=== PATIENT | male | born 1990 | race Caucasian/White ===

== ENCOUNTER 2018-03-16 22:34 | Emergency (ER) | payer SELFPAY ==
[2018-03-16] MEDS ORDERED: predniSONE TAB* 20 MG PO ONE (22:58)
[2018-03-16] MEDS ORDERED: EPINEPHrine AMP 1 MG/ML IM ONE (22:58)
[2018-03-16] MEDS ORDERED: diPHENhydraMINE PO* 25 MG PO ONE (22:58)
[2018-03-16] MEDS ORDERED: Famotidine TAB* 20 MG PO ONE (22:58)
--- NOTE | 2018-03-17 00:18 | ED ---
Adan Gruber Jennifer, scribed for Ulices Smith MD on 03/16/18 at 2256 . Allergic Reaction/Systemic - HPI Summary HPI Summary: The patient is a 27 year old male who complains of allergic reaction after drinking a vegetable smoothie about two hours ago. The patient states the smoothie only had carrot juice and spinach. He reports he immediately vomited, felt something in the middle of his chest, got a nosebleed, got hives on the back of his head and armpits, and got redness to his face. He adds that he can swallow but it feels uncomfortable. - History of Current Complaint Chief Complaint: EDAllergicReaction Time Seen by Provider: 03/16/18 22:47 Hx Obtained From: Patient Onset/Duration: Sudden Onset, Started hours ago - two hours, Still Present Timing: Constant Severity Initially: Mild Severity Currently: Mild Pain Intensity: 0 Pain Scale Used: 0-10 Numeric Location: Discrete @ - Head/face Character: Hives Aggravating Factor(s): Nothing Alleviating Factor(s): Nothing Associated Signs And Symptoms: Positive: Other: - vomiting, "felt something" in middle of chest, nosebleed, hives on back of head, redness to face, feels uncomfortable swelling - Allergies/Home Medications Allergies/Adverse Reactions: Allergies Allergy/AdvReac Type Severity Reaction Status Date / Time Azithromycin Allergy Swelling Verified 03/31/17 22:19 [From Zithromax] Of Face,Lips,& Throat PMH/Surg Hx/FS Hx/Imm Hx Endocrine/Hematology History: Denies: Hx Diabetes Cardiovascular History: Denies: Hx Hypertension Infectious Disease History: No Infectious Disease History: Denies: Traveled Outside the [place] in Last 30 Days - Family History Known Family History: Negative: Hypertension, Diabetes - Social History Alcohol Use: None Substance Use Type: Reports: None Smoking Status (MU): Never Smoked Tobacco Review of Systems ENT: Other - Uncomfortable swallowing Positive: Epistaxis Positive: Other - "felt something" in middle of chest Positive: Vomiting Positive: Other - Redness to face, hives on back of head and armpits All Other Systems Reviewed And Are Negative: Yes Physical Exam - Summary Physical Exam Summary: Appearance: Well appearing, no pain distress Skin: warm, dry, reflects adequate perfusion, erythematous under bilateral armpits Head/face: facial flushing and redness Eyes: EOMI, TG, edema under the right eye ENT: No mucosal inflammation or bleeding of the nose; no lip, tongue, or uvular swelling Neck: supple, non-tender Respiratory: CTA, breath sounds present Cardiovascular: RRR, pulses symmetrical Abdomen: non-tender, soft Bowel Sounds: present Musculoskeletal: normal, strength/ROM intact Neuro: normal, sensory motor intact, A&Ox3 Triage Information Reviewed: Yes Vital Signs On Initial Exam: Initial Vitals Temp Pulse Resp BP Pulse Ox 98.7 F 89 16 123/86 99 03/16/18 22:41 03/16/18 22:41 03/16/18 22:41 03/16/18 22:41 03/16/18 22:41 Vital Signs Reviewed: Yes Diagnostics - Vital Signs Vital Signs Temp Pulse Resp BP Pulse Ox 03/16/18 22:49 79 117/70 95 03/16/18 22:48 76 95 03/16/18 22:41 98.7 F 89 16 123/86 99 - Laboratory Lab Statement: Any lab studies that have been ordered have been reviewed, and results considered in the medical decision making process. Re-Evaluation - Re-Evaluation First Eval Re-Evaluation Time: 00:05 Change: Improved Comment: Pt's symptoms are gone. Allergic Reaction Course/Dx - Course Course Of Treatment: Patient with sudden onset of urticaria, facial redness/ swelling and subxiphoid area discomfort. Epinephrine was given IM and he received H1, H2 blockers and steroids. He had quick relief of his symptoms. There is no definite cause and his ingestion is typically unlikely to cause symptoms. We will refer him for allergy testing and prescribe H2 nnamdi, steroid and epi-pens. - Diagnoses Differential Diagnosis/HQI/PQRI: Positive: Airway Obstruction, Anaphylaxis, Local Allergic Reaction Provider Diagnoses: Food allergy Discharge - Sign-Out/Discharge Documenting (check all that apply): Discharge/Admit/Transfer - Discharge Plan Condition: Improved Disposition: HOME Prescriptions: EPINEPHrine [Epipen 2-Iván] 0.3 mg IM ONCE PRN #2 packet PRN Reason: Allergy Symptoms Famotidine TAB* [Pepcid 20 MG TAB*] 20 mg PO BID #10 tab predniSONE TAB* [Deltasone TAB*] 50 mg PO DAILY #3 tab Patient Education Materials: Food Allergy (ED) Referrals: [facility] [place] [facility] REFERRAL [Outside] Additional Instructions: Avoid all ingredients that were contained within this smoothie. Return immediately with any difficulty breathing, difficulty swallowing, worse or other concerns. This recommended that you have outpatient allergy testing. Carried the EpiPen prescribed for use in case of severe allergy symptoms. Always return to an ER should you have to use epi at home. - Billing Disposition and Condition Condition: IMPROVED Disposition: HOME The documentation as recorded by the Adan ca Jennifer accurately reflects the service I personally performed and the decisions made by , Ulices Smith MD.
[2018-03-17 00:53] VITALS: BP 123/79
== END 2018-03-17 00:56 | disposition home or self-care (01) ==
LOC: ED 22:34
DX: T78.1XXA Other adverse food reactions, not elsewhere classified, initial encounter (principal); R11.10 Vomiting, unspecified; R04.0 Epistaxis; L50.9 Urticaria, unspecified; X58.XXXA Exposure to other specified factors, initial encounter; Z88.1 Allergy status to other antibiotic agents
CPT/HCPCS: 96372; 99283; A9270-GY; J0171; J7512

== ENCOUNTER 2018-08-06 16:57 | Emergency (ER) | payer OTHER ==
--- OUTSIDE RECORDS SUMMARY | 2018-08-06 17:03 | XMS REPORT ---
:1990 External Reference #:[id number] Author Organization [facility] Address [address] [place] [address] Phone [phone] Care Team Providers Name Role Phone JED Velazquez III Care Team Information Summer Associate Unavailable Payers Type Date Identification Numbers Payment Provider Subscriber Commercial Effective: Policy Number: [employer] Richi Loyd 2010 [id number] Expires: 2016 Group Name: [employer] [address] [address] PayID: [id number] MODESTO Ontiveros [address] Commercial Policy Number: [id number] [employer] Roque Loyd PayID: [id number] [address] [place] [address] Problems Description No Active Problems Social History Type Date Description Comments Lives With with parents off season lives with room mates on campus at [employer] during the school year Cigarette Use Never Smoked Cigarettes ETOH Use Occasionally consumes alcohol Recreational Drug Use Denies Drug Use Enjoy Exercising Enjoys exercising Allergies, Adverse Reactions, Alerts Date Description Reaction Status Severity Comments 04/14/2011 NKDA active 07/15/2018 Carrots Anaphylaxis active Severe Medications Medication Date Status Form Strength Qnty SIG Indications Ordering Provider Doxycycline Hx Capsules 100mg 2caps take two Jamal Hyclate 000 - capsules by Ramsey mouth once MD Hilario Immunizations CPT Code Status Date Vaccine Lot # 27522 Given 11/23/2015 DT (Adult) 68423 Given 02/14/2011 Hepatitis A (Ped) 2 Dose Schedule 14608 Given 10/08/2007 Hepatitis A (Ped) 2 Dose Schedule 17571 Given 10/06/2006 Menactra (meningococcal conjugate vaccine) 64761 Given 10/06/2006 Tdap (Adacel) 48711 Given 08/13/2002 DT (Adult) 10767 Given 03/29/1999 Hep B Vaccine, Ped/Adol Dose 3 Dose (Engerix or Recombivax) 15224 Given 10/09/1997 Hep B Vaccine, Ped/Adol Dose 3 Dose (Engerix or Recombivax) 50898 Given 03/20/1997 Hep B Vaccine, Ped/Adol Dose 3 Dose (Engerix or Recombivax) 12451 Given 07/23/1995 Inactivated Polio Vaccine, Injectable (Ipol) 69380 Given 07/23/1995 DTaP (Daptacel) 25170 Given 09/29/1994 MMR (Measles,Mumps,Rubella) 08682 Given 12/13/1991 DTaP (Daptacel) 99636 Given 12/13/1991 Hib (Hemophilus Influenza B) (Acthib) 61435 Given 12/09/1991 MMR (Measles,Mumps,Rubella) 74126 Given 06/03/1991 DTaP (Daptacel) 13098 Given 06/03/1991 Hib (Hemophilus Influenza B) (Acthib) 88000 Given 1990 Inactivated Polio Vaccine, Injectable (Ipol) 15482 Given 1990 DTaP (Daptacel) 88163 Given 1990 Hib (Hemophilus Influenza B) (Acthib) 77819 Given 1990 Inactivated Polio Vaccine, Injectable (Ipol) 51194 Given 1990 DTaP (Daptacel) 63577 Given 1990 Hib (Hemophilus Influenza B) (Acthib) Vital Signs Date Vital Result Comment 07/15/2018 Weight 184.00 lb Weight in kg's 83.462 BP Systolic 120 mmHg BP Diastolic 80 mmHg Heart Rate 52 /min Body Temperature 98.2 F Respiratory Rate 16 /min Height 72 inches 6'0" BMI (Body Mass Index) 25.0 kg/m2 06/16/2017 Weight 185.00 lb Weight in kg's 83.916 BP Systolic 130 mmHg BP Diastolic 70 mmHg Heart Rate 52 /min Body Temperature 97.2 F Ibuprofen at 1030 04/14/2011 Weight 180.00 lb Weight in kg's 81.648 BP Systolic 120 mmHg BP Diastolic 80 mmHg Heart Rate 68 /min Body Temperature 97.7 F Height 73 inches 6'1" BMI (Body Mass Index) 23.7 kg/m2 Results Test Date Test Result H/L Range Note CBC Auto Diff 07/15/2018 White Blood Count 6.2 10^3/uL 3.5-10.8 Red Blood Count 5.00 10^6/uL 4.00-5.40 Hemoglobin 15.8 g/dL 14.0-18.0 Hematocrit 46 % 42-52 Mean Corpuscular Volume 92 fL 80-94 Mean Corpuscular Hemoglobin 32 pg High 27-31 Mean Corpuscular HGB Conc 35 g/dL 31-36 Red Cell Distribution Width 14 % 10.5-15 Platelet Count 261 10^3/uL 150-450 Mean Platelet Volume 8.1 um3 7.4-10.4 Abs Neutrophils 3.6 10^3/uL 1.5-7.7 Abs Lymphocytes 1.2 10^3/uL 1.0-4.8 Abs Monocytes 0.7 10^3/uL 0-0.8 Abs Eosinophils 0.5 10^3/uL 0-0.6 Abs Basophils 0.2 10^3/uL 0-0.2 Abs Nucleated RBC 0 10^3/uL Granulocyte % 58.4 % 38-83 Lymphocyte % 19.1 % Low 25-47 Monocyte % 11.7 % High 0-7 Eosinophil % 8.3 % High 0-6 Basophil % 2.5 % High 0-2 Nucleated Red Blood Cells % 0.1 Basic Metabolic Panel 07/15/2018 Sodium 136 mmol/L 135-145 Potassium 4.7 mmol/L 3.5-5.0 Chloride 101 mmol/L 101-111 Co2 Carbon Dioxide 28 mmol/L 22-32 Anion Gap 7 mmol/L 2-11 Glucose 92 mg/dL 70-100 Blood Urea Nitrogen 17 mg/dL 6-24 Creatinine 1.03 mg/dL 0.67-1.17 BUN/Creatinine Ratio 16.5 8-20 Calcium 10.1 mg/dL 8.6-10.3 Egfr Non- 86.0 >60 Egfr 104.0 >60 1 Lipid Profile (Trig/Chol/HDL) 07/15/2018 Triglycerides 122 mg/dL 2 Cholesterol 162 mg/dL 3 HDL Cholesterol 67.1 mg/dL 4 LDL Cholesterol 71 mg/dL 5 Laboratory test finding 07/15/2018 Hepatitis B Liliana AB Titer <pending> Alt 39 U/L 7-52 6 Ast (Sgot) 44 U/L High 13-39 7 CBC Auto Diff 06/16/2017 White Blood Count 7.2 10^3/uL 3.5-10.8 Red Blood Count 4.43 10^6/uL 4.0-5.4 Hemoglobin 13.4 g/dL Low 14.0-18.0 Hematocrit 40 % Low 42-52 Mean Corpuscular Volume 89 fL 80-94 Mean Corpuscular Hemoglobin 30 pg 27-31 Mean Corpuscular HGB Conc 34 g/dL 31-36 Red Cell Distribution Width 14 % 10.5-15 Platelet Count 303 10^3/uL 150-450 Mean Platelet Volume 8 um3 7.4-10.4 Abs Neutrophils 4.1 10^3/uL 1.5-7.7 Abs Lymphocytes 1.9 10^3/uL 1.0-4.8 Abs Monocytes 0.6 10^3/uL 0-0.8 Abs Eosinophils 0.6 10^3/uL 0-0.6 Abs Basophils 0.1 10^3/uL 0-0.2 Abs Nucleated RBC 0 10^3/uL Granulocyte % 56.0 % 38-83 Lymphocyte % 25.6 % 25-47 Monocyte % 8.7 % 1-9 Eosinophil % 8.0 % High 0-6 Basophil % 1.7 % 0-2 Nucleated Red Blood Cells % 0.1 Basic Metabolic Panel 06/16/2017 Sodium 135 mmol/L 133-145 Potassium 4.3 mmol/L 3.5-5.0 Chloride 100 mmol/L Low 101-111 Co2 Carbon Dioxide 29 mmol/L 22-32 Anion Gap 6 mmol/L 2-11 Glucose 118 mg/dL High 70-100 Blood Urea Nitrogen 8 mg/dL 6-24 Creatinine 0.90 mg/dL 0.67-1.17 BUN/Creatinine Ratio 8.9 8-20 Calcium 9.3 mg/dL 8.6-10.3 Egfr Non- 101.2 >60 Egfr 130.2 >60 8 Laboratory test finding 06/16/2017 Erythrocyte Sed Rate 10 mm/Hr 0-14 9 C Reactive Protein 17.02 mg/L High < 5.00 10 Lyme Western Blot 06/16/2017 Lyme Disease IgG Ab WB Negative Negative Lyme Disease IgG Bands Present p41, p23, kDa Lyme Disease IgM Ab WB Positive Negative Lyme Disease IgM Bands Present p41, p39, p23, kDa Lyme Disease Interpretation See Comment 11 Laboratory test finding 06/16/2017 Anaplasma Phagocytophilium <1:64 titer <1:64 12 Babesia Microti Abs 06/16/2017 Babesia microti IgG <1:64 (Igg,Igm) Babesia microti IgM <1:20 Babesia microti Interpretation See Comment 13 1 Because ethnic data is not always readily available, this report includes an eGFR for both -Americans and non- Americans. The National Kidney Disease Education Program (NKDEP) does not endorse the use of the MDRD equation for patients that are not between the ages of 18 and 70, are , have extremes of body size, muscle mass, or nutritional status, or are non- or non-. According to the National Kidney Foundation, irrespective of diagnosis, the stage of the disease is based on the level of kidney function: Stage Description GFR(mL/min/1.73 m(2)) 1 Kidney damage with normal or decreased GFR 90 2 Kidney damage with mild decrease in GFR 60-89 3 Moderate decrease in GFR 30-59 4 Severe decrease in GFR 15-29 5 Kidney failure <15 (or dialysis) 2 Desirable: <150 Borderline High: 150-199 High: 200-499 Very High: >500 3 Desirable: <200 Borderline High: 200-239 High: >239 4 Low: <40 Desirable: 40-60 High: >60 5 Desirable: <100 Near Optimal: 100-129 Borderline High: 130-159 High: 160-189 Very High: >189 6 [id number] Because ethnic data is not always readily available, this report includes an eGFR for both -Americans and non- Americans. The National Kidney Disease Education Program (NKDEP) does not endorse the use of the MDRD equation for patients that are not between the ages of 18 and 70, are , have extremes of body size, muscle mass, or nutritional status, or are non- or non-. According to the National Kidney Foundation, irrespective of diagnosis, the stage of the disease is based on the level of kidney function: Stage Description GFR(mL/min/1.73 m(2)) 1 Kidney damage with normal or decreased GFR 90 2 Kidney damage with mild decrease in GFR 60-89 3 Moderate decrease in GFR 30-59 4 Severe decrease in GFR 15-29 5 Kidney failure <15 (or dialysis) 9 [id number] Acute inflammation: >10.00 11 Consistent with early infection with Borrelia burgdorferi. A new serum specimen should be submitted in 14-21 days to demonstrate seroconversion of IgG. IgM blot criteria is of diagnostic utility only during the first 4 weeks of early Lyme disease. ADDITIONAL INFORMATION CDC criteria require >=5 bands for IgG or >=2 bands for IgM for the Immunoblot to be considered positive. Bands (e.g.,p41) may be detected in patients without Lyme disease, and patterns not meeting the CDC criteria should be interpreted with caution. Immunoblot should be ordered only on specimens that are positive or equivocal by a FDA-licensed Lyme disease antibody screening test (e.g., EIA). Test Performed by: [facility] - [address] [address] ADDITIONAL INFORMATION This test was developed using an analyte specific reagent. Its performance characteristics were determined by [facility] in a manner consistent with CLIA requirements. This test has not been cleared or approved by the U.S. Food and Drug Administration. Test Performed by: [facility] - [address] [id number] ANTIBODY NOT DETECTED REFERENCE RANGES: IgG <1:64 IgM <1:20 Elevated antibody levels to B. microti indicate exposure to the organism. Human babesiosis infection is transmitted by the bite of an infected Ixodes tick or less frequently from transfusion with blood from an infected donor. Definitive diagnosis is made by identifying intraerythrocytic organisms in peripheral blood. In patients with low parasitemia, antibody detection by IFA is recommended. IgG levels greater than or equal to 1:1024 can be detected in acute phase patients with parasites in blood smears. The IFA assay can be used as a seroepidemiologic tool to study the frequency and distribution of B. microti in endemic areas especially in persons with mixed infections also involving Borrelia burgdorferi. This test was developed and its analytical performance characteristics have been determined by [facility]. It has not been cleared or approved by the U.S. Food and Drug Administration. The FDA has determined that such clearance or approval is not necessary. This assay has been validated pursuant to the CLIA regulations and is used for clinical purposes. Test Performed by: [facility] [address] [place] [address] Procedures Date CPT Code Description Status 07/15/2018 49530 EKG, at Least 12 Leads w/Interpretation and Report Completed Encounters Type Date Location Provider CPT E/M Dx Office Visit 06/16/2017 11:15a Main Office Misael Hayden III, [employer] 21722 A69.20 Office Visit 04/14/2011 10:30a Main Office Harika Jacome [employer] 71781 314.00 477.9 Plan of Care Future Appointment(s):07/16/2018 10:20 am - Lab and Office Services at Main [place]7/15/2018 - CAROLYN Arriola00.8 Encounter for other general examinationNew Xrays:Chest Single View, FrontalComments:These labs and x-rays are all specifically required by his employer.Follow up:To [facility] for MMR #2 and IPV #3 vaccinations [facility]
[2018-08-06 17:04] VITALS: BP 120/80
--- NOTE | 2018-08-06 17:05 | UC ---
General HPI - HPI Summary HPI Summary: 28 yo male presents requesting a UA for his work. He is having no symptoms and has no complaints, but his employer is requesting a UA for his new job - History of Current Complaint Chief Complaint: UCGeneralIllness Stated Complaint: UA Time Seen by Provider: 08/06/18 17:04 Hx Obtained From: Patient Current Severity: None Pain Intensity: 0 - Allergy/Home Medications Allergies/Adverse Reactions: Allergies Allergy/AdvReac Type Severity Reaction Status Date / Time azithromycin Allergy Swelling Verified 08/06/18 17:05 Of Face,Lips,& Throat PMH/Surg Hx/FS Hx/Imm Hx - Additional Past Medical History Additional PMH: None - Surgical History Surgical History: None - Family History Known Family History: Negative: Hypertension, Diabetes - Social History Occupation: Employed Full-time Lives: With Family Alcohol Use: Occasionally Substance Use Type: None Smoking Status (MU): Current Some Day Smoker Review of Systems Constitutional: Negative Skin: Negative Respiratory: Negative Cardiovascular: Negative Neurovascular: Negative Neurological: Negative Psychological: Negative All Other Systems Reviewed And Are Negative: Yes Physical Exam - Summary Physical Exam Summary: GENERAL: NAD. WDWN. No pain distress. SKIN: No streaking, bleeding, or drainage. NECK: Supple. Nontender. No lymphadenopathy. CHEST: No accessory muscle use. Breathing comfortably and in no distress. CV: Pulses intact. Cap refill <2seconds NEURO: Alert. PSYCH: Age appropriate behavior. Triage Information Reviewed: Yes Vital Signs: Initial Vital Signs Temp 98 F 08/06/18 17:00 Pulse 53 08/06/18 17:00 Resp 16 08/06/18 17:00 BP 120/80 08/06/18 17:00 Pulse Ox 98 08/06/18 17:00 Laboratory Tests 08/06/18 17:15 POC Urine Color Yellow POC Urine Clarity Clear POC Urine pH 7.0 POC Ur Specif Corrigan <= 1.005 L POC Urine Protein Negative POC Ur Glucose (UA) Negative POC Urine Ketones Negative POC Urine Blood Negative POC Urine Nitrite Negative POC Urine Bilirubin Negative POC Urine Urobilinogen 0.2 POC U Leukocyte Esteras Negative Vital Signs Reviewed: Yes Course/Dx - Course Course Of Treatment: UA negative and results of UA provided to pt. - Differential Dx - Multi-Symptom Provider Diagnoses: Pre-employment UA Discharge - Sign-Out/Discharge Documenting (check all that apply): Patient Departure All imaging exams completed and their final reports reviewed: No Studies - Discharge Plan Condition: Stable Disposition: HOME Referrals: Jamal Mustafa MD [Primary Care Provider] - Additional Instructions: If you develop a fever, shortness of breath, chest pain, new or worsening symptoms - please call your PCP or go to the ED. - Billing Disposition and Condition Condition: STABLE Disposition: Home
== END 2018-08-06 17:23 | disposition home or self-care (01) ==
LOC: UCEAST 16:57
DX: Z02.1 Encounter for pre-employment examination (principal); F17.200 Nicotine dependence, unspecified, uncomplicated; Z88.3 Allergy status to other anti-infective agents
CPT/HCPCS: 81003; 99211; G0463

== ENCOUNTER 2020-02-06 07:52 | Emergency (ER) | payer OTHER ==
[2020-02-06 08:02] VITALS: BP 136/99
--- NOTE | 2020-02-06 08:08 | ED ---
Substance Abuse/Use - HPI Summary HPI Summary: 29-year-old male presents to the emergency department today with a chief complaint of "I'm a closet alcoholic and I want to detox today." Patient states his last drink was approximately 30 minutes prior to arrival and he states he has had approximately 15 beers since 0100 this morning. Patient endorses a 15 beers a day alcohol consumption for the past 2-3 years. At this time patient endorses mild tremor and feels like he is going into withdrawal. Patient states he has never gone into withdrawal or tender to detox. Patient states his father had a drinking problem as well. Patient otherwise feels well and denies recent travel, cough, fever, chest pain, bone pain complained urination, nausea, vomiting and diarrhea, hallucinations. Patient is currently in no acute distress and has no evidence of severe alcohol withdrawal. - History Of Current Complaint Chief Complaint: EDSubstanceAbuse Stated Complaint: ETOH WITHDRAWAL PER EMS Time Seen by Provider: 02/06/20 08:02 Hx Obtained From: Patient Onset/Duration of Drug/ETOH Abuse: Years Ingestion History: Type/Name Of Drug - "beer", Amount Ingested - 12 beers this moring Overdose Characteristics: Oral Timing Of Abuse: Daily Severity Initially: Mild Severity Currently: Mild Character: Anxious Associated Signs And Symptoms: Tremulous - Allergies/Home Medications Allergies/Adverse Reactions: Allergies Allergy/AdvReac Type Severity Reaction Status Date / Time azithromycin Allergy Swelling Verified 08/06/18 17:05 Of Face,Lips,& Throat Home Medications: Home Medications EPINEPHrine [Epipen 2-Iván] 0.3 mg IM ONCE PRN #2 packet 03/16/18 [Rx] chlordiazePOXIDE CAP* [Librium CAP*] 25 mg PO TID #20 cap MDD 150mg 02/06/20 [Rx ] PMH/Surg Hx/FS Hx/Imm Hx Endocrine/Hematology History: Denies: Hx Diabetes Cardiovascular History: Denies: Hx Hypertension Infectious Disease History: No Infectious Disease History: Denies: Traveled Outside the [place] in Last 30 Days - Family History Known Family History: Negative: Hypertension, Diabetes - Social History Alcohol Use: Occasionally Substance Use Type: Reports: None Smoking Status (MU): Current Some Day Smoker Review of Systems Constitutional: Negative Eyes: Negative ENT: Negative Cardiovascular: Negative Respiratory: Negative Gastrointestinal: Negative Genitourinary: Negative Musculoskeletal: Negative Skin: Negative Neurological/Mental Status: Negative Positive: Anxious All Other Systems Reviewed And Are Negative: Yes Physical Exam - Summary Physical Exam Summary: Patient is in no acute distress. There is no evidence of severe alcohol draw. Patient has minor tremor but otherwise has no diaphoresis or evidence of hallucination. Triage Information Reviewed: Yes Vital Signs On Initial Exam: Initial Vitals Temp Pulse Resp BP Pulse Ox 98 F 94 18 136/99 97 02/06/20 07:55 02/06/20 07:55 02/06/20 07:55 02/06/20 07:55 02/06/20 07:55 Vital Signs Reviewed: Yes Appearance: Positive: Well-Appearing, No Pain Distress, Well-Nourished Skin: Positive: Warm, Skin Color Reflects Adequate Perfusion Eyes: Positive: EOMI, TG ENT: Positive: Hearing grossly normal Respiratory/Lung Sounds: Positive: Clear to Auscultation, Breath Sounds Present Cardiovascular: Positive: RRR, S1, S2 Abdomen Description: Positive: Nontender, Soft Bowel Sounds: Positive: Present Musculoskeletal: Positive: Strength/ROM Intact Neurological: Positive: Sensory/Motor Intact, Alert, Oriented to Person Place, Time, Normal Gait, Facial Symmetry, Speech Normal Psychiatric: Positive: Anxious AVPU Assessment: Alert Procedures - Sedation Patient Received Moderate/Deep Sedation with Procedure: No Diagnostics - Vital Signs Vital Signs Temp Pulse Resp BP Pulse Ox 02/06/20 07:55 98 F 94 18 136/99 97 - Laboratory Lab Statement: Any lab studies that have been ordered have been reviewed, and results considered in the medical decision making process. Course/Dx - Course Course Of Treatment: Patient was evaluated in the emergency department today for alcohol withdrawal. Vitals noted and stable. There is no evidence of alcohol withdrawal at this time. Patient had a mild tremor otherwise he was asymptomatic and had no complaints. Patient stated he had desires to detox. There is no evidence of needing to admit him for alcohol withdrawal due to his symptomology being mild. Patient was given prescription for Librium for detox and discharged for outpaitent follow up. - Diagnoses Differential Diagnosis/HQI/PQRI: Positive: Alcohol Withdrawal, Anxiety, Delirium Tremens Provider Diagnoses: Alcohol abuse Discharge ED - Sign-Out/Discharge Documenting (check all that apply): Patient Departure - Discharge Plan Condition: Stable Disposition: HOME Prescriptions: chlordiazePOXIDE CAP* [Librium CAP*] 25 mg PO TID #20 cap MDD 150mg Patient Education Materials: Alcohol Withdrawal (ED) Referrals: Jamal Mustafa MD [Primary Care Provider] - [facility] - Residential Facility [Outside] - As Soon As Possible Additional Instructions: It appears you are not currently experiencing severe alcohol withdrawal and your symptoms can be managed at home. Please take the medication given to you as directed. Please do not drive while taking this medication. Please follow- up with a detox center of your choosing for further evaluation and management. The medication given to will keep you from going into withdrawal however if you develop any new or worsening symptoms such as severe tremor, hallucinations or seizures please return to the emergency Department immediately. - Billing Disposition and Condition Condition: STABLE Disposition: Home
[2020-02-06] MEDS ORDERED: chlordiazePOXIDE CAP* 25 MG PO ONE (08:12)
--- OUTSIDE RECORDS SUMMARY | 2020-02-06 08:33 | XMS REPORT | Continuity of Care Document ---
:1990 External Reference #:[id number] Author Name Jamal Mustafa MD (transmitted by agent of provider Mariajose Lewis) Address [address] [place] [address] Problems Description No Active Problems Social History Type Date Description Comments Sex Unknown Tobacco Use Start: Unknown Never Smoked Cigarettes ETOH Use Occasionally consumes alcohol Recreational Drug Use Denies Drug Use Enjoy Exercising Enjoys exercising Allergies, Adverse Reactions, Alerts Active Allergies Reaction Severity Comments Date Carrots Anaphylaxis Severe 07/15/2018 Zithromax Facial swelling Severe 04/29/2019 Seasonal Nasal congestion, Itchy eyes Moderate 04/29/2019 Inactive Allergies NKDA 04/14/2011 Medications Active Medications SIG Qnty Indications Ordering Date Provider Cefdinir take 1 capsule by 30caps J01.10 Jamal 01/27/2020 300mg mouth every 8 MD Ramsey Capsules hours for 10 days for infection Flonase Allergy inhale 1 spray 19.800ml J01.10 Jamal 01/27/2020 Relief Childrens into nostril 2 MD Ramsey times per day in 50mcg/Act Suspension each nostril Multivitamin Adult 1 by mouth every Unknown day Tablets Fish Oil + D3 Unknown [id number] Capsules History Medications Doxycycline Hyclate 1 tab by mouth 21tabs A69.20 Jamal Mustafa, 2018 - twice a day 01/27/2020 100mg Tablets Immunizations CPT Code Status Date Vaccine Lot # [id number] Given 01/27/2020 Influenza Virus Vaccine, Quadrivalent, 3 Yr > [id number] Quad, Preserv Free 58067 Given 11/23/2015 DT (Adult) 64523 Given 02/14/2011 Hepatitis A (Ped) 2 Dose Schedule 56358 Given 10/08/2007 Hepatitis A (Ped) 2 Dose Schedule 58708 Given 10/06/2006 Menactra (meningococcal conjugate vaccine) 45938 Given 10/06/2006 Tdap (Adacel) 23229 Given 08/13/2002 DT (Adult) 07995 Given 03/29/1999 Hep B Vaccine, Ped/Adol Dose 3 Dose (Engerix or Recombivax) 41889 Given 10/09/1997 Hep B Vaccine, Ped/Adol Dose 3 Dose (Engerix or Recombivax) 38841 Given 03/20/1997 Hep B Vaccine, Ped/Adol Dose 3 Dose (Engerix or Recombivax) 18201 Given 07/23/1995 Inactivated Polio Vaccine, Injectable (Ipol) 57881 Given 07/23/1995 DTaP (Daptacel) 19425 Given 09/29/1994 MMR (Measles,Mumps,Rubella) 45371 Given 12/13/1991 DTaP (Daptacel) 45050 Given 12/13/1991 Hib (Hemophilus Influenza B) (Acthib) 34455 Given 12/09/1991 MMR (Measles,Mumps,Rubella) 55678 Given 06/03/1991 DTaP (Daptacel) 67527 Given 06/03/1991 Hib (Hemophilus Influenza B) (Acthib) 80799 Given 1990 Inactivated Polio Vaccine, Injectable (Ipol) 37159 Given 1990 DTaP (Daptacel) 50584 Given 1990 Hib (Hemophilus Influenza B) (Acthib) 98889 Given 1990 Inactivated Polio Vaccine, Injectable (Ipol) 99939 Given 1990 DTaP (Daptacel) 32927 Given 1990 Hib (Hemophilus Influenza B) (Acthib) Vital Signs Date Vital Result Comment 01/27/2020 3:16pm Weight 186.00 lb Weight 84.370 kg BP Systolic 124 mmHg BP Diastolic 74 mmHg Heart Rate 74 /min Body Temperature 97.5 F Respiratory Rate 16 /min O2 % BldC Oximetry 98 % 10/14/2019 4:24pm Weight 178.12 lb Weight 80.797 kg BP Systolic 128 mmHg BP Diastolic 76 mmHg Heart Rate 80 /min Body Temperature 97.5 F Respiratory Rate 16 /min Height 73 inches 6'1" BMI (Body Mass Index) 23.5 kg/m2 O2 % BldC Oximetry 98 % Results Description No Information Available Procedures Description No Information Available Medical Devices Description No Information Available Encounters Type Date Location Provider Dx Diagnosis Office Visit 01/27/2020 Main Office [facility] Arriola01.10 Acute frontal 3:15p sinusitis, unspecified Z23 Encounter for immunization Office Visit 10/14/2019 4:15p Main Office Jamal Mustafa A69.20 Tarik eagle MD unspecified Assessments Date Code Description Provider 01/27/2020 [place] Acute frontal sinusitis, unspecified Jamal Mustafa MD 01/27/2020 Z23 Encounter for immunization Jamal Mustafa MD 10/14/2019 A69.20 Tarik disease, isaac Mustafa MD Plan of Treatment 01/27/2020 - Jamal Mustafa MDJ01.10 Acute frontal sinusitis, unspecifiedNew Medication:Cefdinir 300 mg - take 1 capsule by mouth every 8 hours for 10 days for infectionFlonase Allergy Relief Childrens 50 mcg/Act - inhale 1 spray into nostril 2 times per day in each nostrilComments:He has a long list of symptoms written down that he separates into "neurologic symptoms and "and "physical symptoms".Inspired by this, I took the liberty of all of the symptoms into my own set of 2 lists, symptoms attributable to anxiety and symptoms not attributable to anxiety.When I read the symptoms not attributable to anxiety list, it sounded like a sinus infection.His exam is consistent with this, and he was actually a bit worried that he would say this as he has been having sinus symptoms for the past couple of months.He did get some benefit when he was taking doxycycline, lending further possible credence to this idea.We will try different antibiotic, hopefully this will get him back on the right road.Z23 Encounter for immunization Functional Status Description No Information Available Mental Status Description No Information Available Referrals Refer to Reason for Referral Status Appt Date Frederic Child REFERRAL TO INFECTIOUS DISEASE FOR LYME DISEASE Closed PLEASE CONTACT PT TO SCHEDULE APPT PLEASE FAX APPOINTMENT DATE/TIME TO [facility] @ [phone]. [facility] [address], [place] [address] [phone]
--- OUTSIDE RECORDS SUMMARY | 2020-02-06 08:33 | XMS REPORT | Continuity of Care Document ---
:1990 External Reference #:[id number] Author Name Frederic Child M.D. (transmitted by agent of provider Jaylin Weiss ) Address [address] [place] [phone] Care Team Providers Name Role Phone Sanjuana Wise, TELEHEALTH NURSE - Obstetrics & Care Team Information Loss Prevention Representative Gynecology Problems Description No Information Available Social History Type Date Description Comments Sex Unknown Tobacco Use Start: Unknown End: Patient is a former smoker former social smoker x Unknown 1 yr Smoking Status Reviewed: 01/19/20 Patient is a former smoker former social smoker x 1 yr Allergies, Adverse Reactions, Alerts Active Allergies Reaction Severity Comments Date Zithromax childhood reaction - swelling 01/19/2020 Medications Description No Active Medications Immunizations Description No Information Available Vital Signs Date Vital Result Comment 01/19/2020 2:53pm Height 72 inches 6'0" Weight 188.00 lb Heart Rate 56 /min BP Systolic Sitting 126 mmHg BP Diastolic Sitting 78 mmHg Respiratory Rate 14 /min Body Temperature 96.6 F BMI (Body Mass Index) 25.5 kg/m2 08/08/2014 2:04pm Height 72.5 inches 6'0.50" Weight 178.75 lb Heart Rate 56 /min BP Systolic Sitting 110 mmHg BP Diastolic Sitting 70 mmHg Pain Level 1 BMI (Body Mass Index) 23.9 kg/m2 Results Test Acquired Date Facility Test Result H/L Range Note Comp Metabolic 01/19/2020 [facility] Sodium 137 mmol/L Normal 135-[address] [place] [address] [phone] Potassium 4.1 mmol/L Normal 3.5-5.0 Chloride 102 mmol/L Normal 101-111 Co2 Carbon Dioxide 30 mmol/L Normal 22-32 Anion Gap 5 mmol/L Normal 2-11 Glucose 86 mg/dL Normal 70-100 Blood Urea Nitrogen 9 mg/dL Normal 6-24 Creatinine 1.04 mg/dL Normal 0.67-1.17 BUN/Creatinine Ratio 8.7 Normal 8-20 Calcium 9.3 mg/dL Normal 8.6-10.3 Total Protein 6.7 g/dL Normal 6.4-8.9 Albumin 4.7 g/dL Normal 3.2-5.2 Globulin 2.0 g/dL Normal 2-4 Albumin/Globulin Ratio 2.4 Normal 1-3 Total Bilirubin 0.50 mg/dL Normal 0.2-1.0 Alkaline Phosphatase 43 U/L Normal 34-104 Alt 43 U/L Normal 7-52 Ast 48 U/L High 13-39 Egfr Non- 84.4 >60 Egfr 102.2 >60 1 CBC Auto 01/19/2020 [facility] White Blood 4.7 10^3/uL Normal 3.5-10.[address] [place] [address] [phone] Red Blood Count 4.83 10^6/uL Normal 4.18-5.48 Hemoglobin 14.8 g/dL Normal 14.0-18.0 Hematocrit 44 % Normal 42-52 Mean Corpuscular Volume 92 fL Normal 80-94 Mean Corpuscular Hemoglobin 31 pg Normal 27-31 Mean Corpuscular HGB Conc 34 g/dL Normal 31-36 Red Cell Distribution Width 13 % Normal 10-15 Platelet Count 257 10^3/uL Normal 150-450 Mean Platelet Volume 7.3 fL Low 7.4-10.4 Abs Neutrophils 2.4 10^3/uL Normal 1.5-7.7 Abs Lymphocytes 1.4 10^3/uL Normal 1.0-4.8 Abs Monocytes 0.6 10^3/uL Normal 0-0.8 Abs Eosinophils 0.2 10^3/uL Normal 0-0.6 Abs Basophils 0.1 10^3/uL Normal 0-0.2 Abs Nucleated RBC 0.0 10^3/uL Granulocyte % 50.5 % Lymphocyte % 30.7 % Monocyte % 12.4 % Eosinophil % 4.7 % Basophil % 1.7 % Nucleated Red Blood Cells % 0.2 Laboratory 01/19/2020 [facility] C Reactive < 1.00 mg/L Normal <8.01 test finding [address] [place] [address] [phone] HIV 1&2 p24 01/19/2020 [facility] HIV 4th Nonreactive Nonreactive Screen [address] [place] [address] [phone] Laboratory 01/19/2020 [facility] Lyme Screen Negative Negative test finding [address] W/ [place] [address] WB [phone] TSH (Thyroid Stim Horm) 1.86 mcIU/mL Normal 0.34-5.60 Vitamin B12 904 pg/mL Normal 180-914 2 1 Because ethnic data is not always [...] 5 Kidney failure <15 (or dialysis) 2 Normal Range 180 to 914 Indeterminate Range 145 to 180 Deficient Range <145 Procedures Description No Information Available Medical Devices Description No Information Available Encounters Type Date Location Provider Dx Diagnosis Office Visit 01/19/2020 [facility] R53.81 Other malaise 2:40p Infectious Diseases Evelia Child R53.1 Weakness G47.00 Insomnia, unspecified Assessments Date Code Description Provider 01/19/2020 R53.81 Other malaise Frederic Child M.D. 01/19/2020 R53.1 Weakness Frederic Child M.D. 01/19/2020 G47.00 Insomnia, unspecified Frederic Child M.D. Plan of Treatment 01/19/2020 - Frederic Child M.D.R53.81 Other malaiseComments:less likely to be lyme infection, will start with blood testing, we discussed that it may be hard tofind a definite explanation, but that the first step in treating his symptoms is to work on sleep disturbance, he will monitor caffeine and etoh intake, will check with Dr Mustafa to see if he has other recommendations on improving his dszvvZ47.1 RkatqychK56.00 Insomnia, unspecified Functional Status Description No Information Available Mental Status Description No Information Available Referrals Description No Information Available
== END 2020-02-06 08:42 | disposition home or self-care (01) ==
LOC: ED 07:52
DX: F10.10 Alcohol abuse, uncomplicated (principal); F17.200 Nicotine dependence, unspecified, uncomplicated; Z88.1 Allergy status to other antibiotic agents
CPT/HCPCS: 99282; A9270-GY

== ENCOUNTER 2024-09-19 22:19 | Observation (INO) ==
[2024-09-20 00:07] LABS: ABS Basophils 0.1 10^3/uL (0.0-0.1); ABS Lymphocytes 1.2 10^3/uL (1.0-4.8); ABS Monocytes 0.7 10^3/uL (0.0-1.1); ABS Neutrophils 4.9 10^3/uL (1.5-7.6); Eosinophil % 0.3 %; Hematocrit 42.1 % (38-53); Hemoglobin 14.6 g/dL (13.2-16.3); Lymphocyte % 17.3 %; Mean Corpuscular Hemoglobin 31.5 pg (27-33); Mean Corpuscular Hgb Conc 34.7 g/dL (31-36); Mean Corpuscular Volume 90.8 fL (80-97); Mean Platelet Volume 6.8 fL (7.5-11.2); Platelet Count 301 10^3/uL (150-450); Red Blood Count 4.63 10^6/uL (4.06-5.63); Red Cell Distribution Width 13.4 % (12-17); White Blood Count 6.9 10^3/uL (3.6-10.2)
[2024-09-20 00:44] LABS: Albumin 4.6 g/dL (3.2-5.2); Albumin/Globulin Ratio 1.7 (1-3); Calcium 9.7 mg/dL (8.6-10.3); Creatinine, Serum 0.9 mg/dL (0.67-1.17); Globulin 2.7 g/dL (2-4); Potassium 4.4 mmol/L (3.5-5.0); Total Bilirubin 0.9 mg/dL (0.2-1.0); Total Protein 7.3 g/dL (6.4-8.9); eGFR CKD-EPI 114.9 (>60)
[2024-09-20] MEDS ORDERED: Ondansetron 4 mg VIAL 2 MG/ML 2 ml VIAL ONE (02:14)
[2024-09-20] MEDS: Lactated Ringers 1000 ml BAG 1,000 ML IV ONE (02:24)
[2024-09-20] MEDS ORDERED: LORazepam 2 MG/ML 1 mL Syringe IV ONE (03:19)
[2024-09-20] MEDS: LORazepam 2 mg VIAL 1 ml IV PUSH ONE (03:28)
[2024-09-20] MEDS: Thiamine 100 MG/ML 2 ml VIAL (200 mg) IM ONE (03:30)
[2024-09-20] MEDS ORDERED: Thiamine 100 MG/ML 2 ml VIAL (200 mg) IM ONE (03:57)
[2024-09-20] MEDS ORDERED: Multivitamins/Minerals TAB PO SCH (04:00)
[2024-09-20] MEDS: LORazepam 2 mg VIAL 1 ml IV PUSH SCH ×2 (05:28→17:13)
[2024-09-20 05:36] LABS: ABS Basophils 0.1 10^3/uL (0.0-0.1); ABS Monocytes 0.8 10^3/uL (0.0-1.1); ABS Neutrophils 5.4 10^3/uL (1.5-7.6); ABS Nucleated RBC 0.01 10^3/ul; Eosinophil % 0.4 %; Hemoglobin 13.4 g/dL (13.2-16.3); Lymphocyte % 23.9 %; Mean Corpuscular Hgb Conc 34.3 g/dL (31-36); Mean Corpuscular Volume 90.2 fL (80-97); Mean Platelet Volume 6.7 fL (7.5-11.2); Nucleated Red Blood Cells % 0.1 %/100WBC (0.0-0.8); Platelet Count 262 10^3/uL (150-450); Red Blood Count 4.32 10^6/uL (4.06-5.63); Red Cell Distribution Width 13.4 % (12-17); White Blood Count 8.3 10^3/uL (3.6-10.2)
[2024-09-20] MEDS: Lactated Ringers 1000 ml BAG 1,000 ML IV SCH (05:36)
[2024-09-20 05:37] LABS: INR 1.05 (0.85-1.14)
[2024-09-20 06:14] LABS: Calcium 9.5 mg/dL (8.6-10.3); Creatinine, Serum 0.79 mg/dL (0.67-1.17); Magnesium 1.8 mg/dL (1.9-2.7); eGFR CKD-EPI 119.5 (>60)
[2024-09-20] MEDS: Magnesium Sulfate 2 gm BAG 2 GM/50 ML BAG IVPB ONE (07:14)
[2024-09-20] MEDS: Iohexol 300 (CONTRAST) 10 ML SDV IV ONE (07:54)
[2024-09-20] MEDS: Multivitamins/Minerals TAB PO SCH (08:31)
[2024-09-20] MEDS ORDERED: Midazolam 5 mg/5 ml VIAL 1 mg/ml 5 ml VIAL (5 mg) ONE (10:23)
[2024-09-20] MEDS ORDERED: fentaNYL 250 mcg/5 ml 50 MCG/ML 5 ml VIAL (250 MCG) ONE (10:23)
[2024-09-20] MEDS ORDERED: Lorazepam PYXIS KEY PRN (15:42)
[2024-09-21 06:27] LABS: Hematocrit 39.5 % (38-53); Hemoglobin 13.8 g/dL (13.2-16.3); Mean Corpuscular Hemoglobin 31.7 pg (27-33); Mean Corpuscular Hgb Conc 34.8 g/dL (31-36); Mean Platelet Volume 7.4 fL (7.5-11.2); Platelet Count 235 10^3/uL (150-450); Red Blood Count 4.34 10^6/uL (4.06-5.63); Red Cell Distribution Width 13.4 % (12-17); White Blood Count 5.8 10^3/uL (3.6-10.2)
[2024-09-21 06:45] LABS: Albumin 4.1 g/dL (3.2-5.2); Albumin/Globulin Ratio 1.8 (1-3); Calcium 8.9 mg/dL (8.6-10.3); Creatinine, Serum 1.05 mg/dL (0.67-1.17); Globulin 2.3 g/dL (2-4); Magnesium 2.1 mg/dL (1.9-2.7); Phosphorus 3.3 mg/dL (2.5-5.0); Potassium 4.2 mmol/L (3.5-5.0); Total Bilirubin 0.9 mg/dL (0.2-1.0); Total Protein 6.4 g/dL (6.4-8.9); eGFR CKD-EPI 95.5 (>60)
[2024-09-22 06:55] LABS: Albumin 4.2 g/dL (3.2-5.2); Albumin/Globulin Ratio 1.7 (1-3); Creatinine, Serum 1.03 mg/dL (0.67-1.17); Globulin 2.5 g/dL (2-4); Potassium 4.2 mmol/L (3.5-5.0); Total Bilirubin 0.5 mg/dL (0.2-1.0); Total Protein 6.7 g/dL (6.4-8.9); eGFR CKD-EPI 97.8 (>60)
[2024-09-22] MEDS ORDERED: Methylnaltrexone 150 MG TAB PO SCH (12:00)
[2024-09-22 14:14] VITALS: BP 124/87
== END 2024-09-22 16:39 | disposition short-term general hospital (02) ==
LOC: ED 22:19 → EDHOLD 22:19 → MEDTELE 09-20 03:51 → SUATTDRO 09-20 03:51 → MEDTELE 09-20 07:19
PROVIDERS: ADMIT Internal Medicine; ATTEND Student in an Organized Health Care Education/Training Program